=== PATIENT | male | born 1995 | race Caucasian/White ===

== ENCOUNTER 2019-06-15 13:40 | Emergency (ER) | payer OTHER, BC ==
--- NOTE | 2019-06-15 14:07 | EDM.PDOC ---
ED HPI GENERAL MEDICAL PROBLEM - General Chief Complaint: Trauma Stated Complaint: HEAD INJURY Time Seen by Provider: 06/15/19 13:43 Source of Information: Reports: Patient History Limitations: Reports: No Limitations - History of Present Illness INITIAL COMMENTS - FREE TEXT/NARRATIVE: HISTORY AND PHYSICAL: History of present illness: Patient is a 24-year-old male presents to the ED today after a pipe being at work hit him in the left temporal region and he lost consciousness. Patient states this event occurred 3-4 hours prior to arrival to the ED. Patient states he has been working since the incident without difficulty at work and made him come to the ED. Patient states he was unconscious only for a brief second when he regained consciousness and was on the ground. Patient states his only complaint is pain around the region where he was hit. Patient states he was slightly dizzy but denies any other symptoms or concerns. Patient denies any health history. Patient denies fever, chills, chest pain, shortness of breath, or cough. Denies headache, neck stiff ness, change in vision. Denies nausea, vomiting, abdominal pain, diarrhea, constipation, or dysuria. Has not noted any blood in urine or stool. Patient has been eating and drinking appropriately. Review of systems: As per history of present illness and below otherwise all systems reviewed and negative. Past medical history: As per history of present illness and as reviewed below otherwise noncontributory. Surgical history: As per history of present illness and as reviewed below otherwise noncontributory. Social history: See social history for further information Family history: As per history of present illness and as reviewed below otherwise noncontributory. Physical exam: General: Patient is alert, oriented, and in no acute distress. Patient sitting comfortably on exam table. HEENT: Atraumatic, normocephalic, pupils equal and reactive bilaterally, negative for conjunctival pallor or scleral icterus but left sclera is injected , mucous membranes moist, TMs normal bilaterally, throat clear, neck supple, nontender, trachea midline. No drooling or trismus noted. No meningeal signs. No hot potato voice noted. There is a 0.5 centimeter laceration over the left temporal region with minimal bleeding. There is surrounding edema of this area and around left orbit. EOMs are intact. Fluorescein stain was performed and no evidence of foreign body or corneal abrasion. Lungs: Clear to auscultation, breath sounds equal bilaterally, chest nontender. Heart: S1S2, regular rate and rhythm without overt murmur Abdomen: Soft, nondistended, nontender. Negative for masses or hepatosplenomegaly. Negative for costovertebral tenderness. Pelvis: Stable nontender. Genitourinary: Deferred. Rectal: Deferred. Skin: Intact, warm, dry. No lesions or rashes noted. Extremities: Atraumatic, negative for cords or calf pain. Neurovascular unremarkable. Cervical collar was placed upon arrival to the ED. No obvious deformities of the complete spine. No step-offs, crepitus, or pain on palpation of the complete spine. Neuro: Awake, alert, oriented. Cranial nerves II through XII unremarkable. Cerebellum unremarkable. Motor and sensory unremarkable throughout. Exam nonfocal. Notes: Trauma alert was called upon arrival to the ED. Dr. Hebert involved in patient care. Discussed the importance for follow-up with the primary care provider. Voices understanding and is agreeable to plan of care. Denies any further questions or concerns at this time. Diagnostics: Head CT, cervical spine CT, CXR, Pelvic XR, Fluroscene eye stain Therapeutics: Dermabond, Tetracaine, steristrips Prescription: None Impression: Head Injury Eyebrow laceration Plan: 1. You can apply ice 15 minutes on, 15 minutes off. 2. Tylenol and/or Ibuprofen as directed for pain management or discomfort. 3. Follow up with the primary provider as discussed. Return to the ED as needed and as discussed. Definitive disposition and diagnosis as appropriate pending reevaluation and review of above. - Related Data Allergies Allergy/AdvReac Type Severity Reaction Status Date / Time No Known Allergies Allergy Verified 06/15/19 13:48 Home Meds: Home Meds . [No Known Home Meds] 06/15/19 [History] Past Medical History HEENT History: Reports: None Cardiovascular History: Reports: None Respiratory History: Reports: None Gastrointestinal History: Reports: None Genitourinary History: Reports: None Musculoskeletal History: Reports: None Neurological History: Reports: None Psychiatric History: Reports: None Endocrine/Metabolic History: Reports: None Hematologic History: Reports: None Immunologic History: Reports: None Oncologic (Cancer) History: Reports: None Dermatologic History: Reports: None - Past Surgical History Head Surgeries/Procedures: Reports: None HEENT Surgical History: Reports: None Cardiovascular Surgical History: Reports: None Respiratory Surgical History: Reports: None GI Surgical History: Reports: None Male Surgical History: Reports: None Endocrine Surgical History: Reports: None Neurological Surgical History: Reports: None Musculoskeletal Surgical History: Reports: None Oncologic Surgical History: Reports: None Dermatological Surgical History: Reports: None Social & Family History - Family History Family Medical History: Noncontributory - Tobacco Use Smoking Status *Q: Current Every Day Smoker Years of Tobacco use: 20 Packs/Tins Daily: 1.5 - Caffeine Use Caffeine Use: Reports: None - Recreational Drug Use Recreational Drug Use: No Review of Systems - Review of Systems Review Of Systems: ROS reveals no pertinent complaints other than HPI. ED EXAM, GENERAL - Physical Exam Exam: See Below (See dictation) ED TRAUMA PROCEDURES - Laceration/Wound Repair Left Face Lac/Wound Length In cm: 0.5 Appearance: Superficial, Linear, Clean Distal NVT: Neuro & Vascular Intact, No Tendon Injury Skin Prep: Chlorhexidine (Hibiciens) Saline Irrigation (cc's): 20 Exploration/Debridement/Repair: Wound Explored, In a Bloodless Field, Explored to Base, No Foreign Material Found Closed With: Dermabond Drain Placement: No Sterile Dressing Applied: None Tetanus Status Addressed: Yes (up to date) Complications: No Course - Vital Signs Last Recorded V/S: Last Vital Signs Temp 36.3 C 06/15/19 13:40 Pulse 75 06/15/19 13:40 Resp 18 06/15/19 13:40 BP 129/81 06/15/19 13:40 Pulse Ox 96 06/15/19 13:40 - Orders/Labs/Meds Orders: Active Orders 24 hr Category Date Time Status Admission Status [Patient Status] [ADT] Stat ADT 06/15/19 14:39 Active Meds: Medications Discontinued Medications Generic Name Dose Route Start Last Admin Trade Name Freq PRN Reason Stop Dose Admin Octyl Cyanoacrylate 1 applic 06/15/19 15:06 06/15/19 15:27 Dermabond Mini TOP 06/15/19 15:07 1 applic ONETIME ONE Administration Tetracaine HCl 1 ml 06/15/19 15:11 06/15/19 15:27 Tetracaine 0.5% Steri-Unit Lea EYELF 06/15/19 15:12 1 drop ASDIRECTED ONE Administration Departure - Departure Time of Disposition: 15:05 Disposition: Home, Self-Care 01 Clinical Impression: Head injury Qualifiers: Encounter type: initial encounter Qualified Code(s): S09.90XA - Unspecified injury of head, initial encounter Eyebrow laceration Qualifiers: Encounter type: initial encounter Laterality: left Qualified Code(s): S01.112A - Laceration without foreign body of left eyelid and periocular area, initial encounter - Discharge Information Referrals: PCP,Unknown [Primary Care Provider] - Forms: ED Department Discharge Additional Instructions: The following information is given to patients seen in the emergency department who are being discharged to home. This information is to outline your options for follow-up care. We provide all patients seen in our emergency department with a follow-up referral. The need for follow-up, as well as the timing and circumstances, are variable depending upon the specifics of your emergency department visit. If you don't have a primary care physician on staff, we will provide you with a referral. We always advise you to contact your personal physician following an emergency department visit to inform them of the circumstance of the visit and for follow-up with them and/or the need for any referrals to a consulting specialist. The emergency department will also refer you to a specialist when appropriate. This referral assures that you have the opportunity for follow-up care with a specialist. All of these measure are taken in an effort to provide you with optimal care, which includes your follow-up. Under all circumstances we always encourage you to contact your private physician who remains a resource for coordinating your care. When calling for follow-up care, please make the office aware that this follow-up is from your recent emergency room visit. If for any reason you are refused follow-up, please contact the [facility] at and asked to speak to the emergency department charge nurse. [facility] [address] [place] [id number] [facility] [address] [place] [id number] 1. You can apply ice 15 minutes on, 15 minutes off. 2. Tylenol and/or Ibuprofen as directed for pain management or discomfort. 3. Follow up with the primary provider as discussed. Return to the ED as needed and as discussed. - My Orders Last 24 Hours: My Active Orders 06/15/19 14:39 Admission Status [Patient Status] [ADT] Stat - Assessment/Plan Last 24 Hours: My Active Orders 06/15/19 14:39 Admission Status [Patient Status] [ADT] Stat
--- NOTE | 2019-06-15 14:07 | CT ---
INDICATION: Trauma TECHNIQUE: CT head without contrast. COMPARISON: None available FINDINGS: The ventricles and sulci are within normal limits. There is no mass effect or midline shift. There is no loss of nieves-white differentiation. There is no evidence of a gross acute intracranial hemorrhage. No acute calvarial fracture is seen. The visualized paranasal sinuses and mastoid air cells are clear. The visualized orbits are within normal limits. There is an ovoid soft tissue density in the posterior nasopharynx which could be related to adenoidal tissue. IMPRESSION: No evidence of a gross acute intracranial hemorrhage, mass effect or loss of nieves-white differentiation. An ovoid nasopharyngeal soft tissue density may be related to adenoidal tissue. Correlate with ENT evaluation. Dictated by Virgilio Avendaño MD @ 06/15/2019 2:04:50 PM Please note that all CT scans at this facility use dose modulation, iterative reconstruction, and/or weight-based dosing when appropriate to reduce radiation dose to as low as reasonably achievable. Dictated by: Virgilio Avendaño MD @ 06/15/2019 14:04:56 (Electronically Signed)
--- NOTE | 2019-06-15 14:11 | CT ---
INDICATION: Trauma TECHNIQUE: CT cervical spine without contrast. COMPARISON: None available FINDINGS: The cervical spine alignment is maintained. The craniocervical and atlantoaxial alignments are near anatomical. There is no evidence of an acute cervical spine fracture. There is no significant precervical soft tissue swelling. IMPRESSION: No evidence of an acute cervical spine fracture. Dictated by Virgilio Avendaño MD @ 06/15/2019 2:09:31 PM Please note that all CT scans at this facility use dose modulation, iterative reconstruction, and/or weight-based dosing when appropriate to reduce radiation dose to as low as reasonably achievable. Dictated by: Virgilio Avendaño MD @ 06/15/2019 14:09:37 (Electronically Signed)
--- NOTE | 2019-06-15 14:45 | CR ---
Indication: Trauma Technique: Chest 1 view Comparison: None Findings/Impression: Cardiovascular and mediastinum: Unremarkable cardiomediastinal silhouette for a portable technique. Lungs and pleural space: Lungs are clear. No sign of infiltrate or mass. No sign of pleural effusion. No pneumothorax. Bones and soft tissues: No significant findings. Dictated by Virgilio Avendaño MD @ 06/15/2019 2:45:11 PM Dictated by: Virgilio Avendaño MD @ 06/15/2019 14:45:15 (Electronically Signed)
--- NOTE | 2019-06-15 14:50 | CR ---
Indication: Trauma Technique: A frontal view of the pelvis Comparison: None available Findings/Impression: Bones: No acute displaced fracture or dislocation. A thin curvilinear density projecting over the right superior sacrum, nonspecific. Joint spaces: Unremarkable. Soft tissues: Unremarkable. Dictated by Virgilio Avendaño MD @ 06/15/2019 2:48:03 PM Dictated by: Virgilio Avendaño MD @ 06/15/2019 14:48:12 (Electronically Signed)
[2019-06-15] MEDS ORDERED: Octyl 2-Cyanoacrylate 1 APPLIC TUBE TOP ONE (15:06)
[2019-06-15] MEDS ORDERED: Tetracaine HCl/PF 0.5% 4 ML Bottle EYELF ONE (15:11)
== END 2019-06-15 15:46 | disposition home or self-care (01) ==
LOC: MW.ED 13:40
DX: S06.9X1A Unspecified intracranial injury with loss of consciousness of 30 minutes or less, initial encounter (principal); S01.112A Laceration without foreign body of left eyelid and periocular area, initial encounter; W22.8XXA Striking against or struck by other objects, initial encounter; Y99.0 Civilian activity done for income or pay
CPT/HCPCS: 12011; 70450; 71045; 72125; 72170; 99284; A9270; 99285

== ENCOUNTER 2021-11-22 06:44 | Emergency (ER) | payer BC, OTHER ==
[2021-11-22] MEDS ORDERED: Ondansetron 4 MG Tab.DIS PO ONE (07:42)
[2021-11-22] MEDS ORDERED: Acetaminophen 325 MG Tab PO ONE (07:42)
[2021-11-22] MEDS ORDERED: Ibuprofen 600 MG Tab PO ONE (07:42)
[2021-11-22 07:51] LABS: CORONAVIRUS COVID-19 NAA POSITIVE (NEGATIVE); INFLUENZA A NAA NEGATIVE (NEGATIVE); INFLUENZA B NAA NEGATIVE (NEGATIVE)
== END 2021-11-22 08:14 | disposition home or self-care (01) ==
LOC: MW.ED 06:44
DX: U07.1 COVID-19 (principal); Z72.0 Tobacco use
CPT/HCPCS: 0240U; 99283; A9270

== ENCOUNTER 2022-01-09 07:02 | Emergency (ER) | payer BC ==
[2022-01-09] MEDS ORDERED: Sodium Chloride 0.9% 1,000 ML IV ONE (07:51)
[2022-01-09] MEDS ORDERED: Sodium Chloride 0.9% 10 ML Syringe FLUSH PRN (07:51)
[2022-01-09] MEDS ORDERED: Sodium Chloride 0.9% 2.5 ML Syringe FLUSH PRN (07:51)
[2022-01-09] MEDS ORDERED: Cephalexin 500 MG Cap PO ONE (09:03)
[2022-01-09 09:21] LABS: BLOOD UREA NITROGEN,BUN 7 mg/dL (7.0-18.0); CARBON DIOXIDE,CO2 26.9 mmol/L (21.0-32.0); CHLORIDE,CL 98 mmol/L (98-107); GLUCOSE RANDOM 83 mg/dL (74-106); SODIUM,NA 137 mmol/L (136-148)
== END 2022-01-09 10:28 | disposition home or self-care (01) ==
LOC: MW.ED 07:02
DX: R55 Syncope and collapse (principal); K04.7 Periapical abscess without sinus; K08.89 Other specified disorders of teeth and supporting structures; E86.0 Dehydration
CPT/HCPCS: 36415; 71045; 80053; 80305; 80307; 81003; 83735; 84439; 84443; 84484; 85025; 93005; 99284; A9270; J7030